=== PATIENT | female | born 1965 | race Caucasian/White ===

== ENCOUNTER 2024-09-30 09:26 | Outpatient (OUT) | payer MEDICARE, SELFPAY | END 2024-09-30 09:27 | disposition home or self-care (01) | LOC: WC 09:28 | PROVIDERS: Visit Provider Podiatrist Foot & Ankle Surgery | DX: I70.235 Atherosclerosis of native arteries of right leg with ulceration of other part of foot (principal); L97.513 Non-pressure chronic ulcer of other part of right foot with necrosis of muscle; I70.245 Atherosclerosis of native arteries of left leg with ulceration of other part of foot; L97.523 Non-pressure chronic ulcer of other part of left foot with necrosis of muscle | CPT/HCPCS: G0463 ==

== ENCOUNTER 2024-10-26 16:49 | Emergency (ER) | payer MEDICARE, SELFPAY ==
[2024-10-26] VITALS (14 sets, daily range): BP systolic 147–179; BP diastolic 81–114; PULSE 55–135; TEMP 36.8; O2SAT 95–97; BMI 25.8
--- OUTSIDE RECORDS SUMMARY | 2024-10-26 16:58 | XMS_ITS | Clinical Summary ---
Author Organization [facility] Address [address] [place] [address] Care Team Providers Care Chopper Gun Operator Name Role Phone Marianna Amado ROGE Primary Care Provider [phone] Allergies Active Allergy Reactions Criticality Noted Date Comments Gabapentin Flushing High 05/09/2019 Medications SUBOXONE 8-2 MG SL film 1 strip 2 times daily. 05/25/19 18 Active fluoxetine 20 MG Cap capsule TAKE 3 CAPSULES EVERY DAY 3 03/18/20 17 Active pantoprazole [address] tablet TAKE 1 TABLET EVERY DAY 3 03/18/20 17 Active atorvastatin 10 MG Tab tablet Take 1 tablet by mouth daily. 30 tablet 11 11/18/19 19 Active Additional Information Patient not taking.Reported on 01/07/2021 aspirin 81 MG Chew Tab chewable tablet Chew 81 mg daily. Active acetaminophen 500 MG Tab tablet Take 500 mg by mouth every 6 hours as needed for Pain. Active Cholecalciferol (Maximum D3) 250 MCG (44748 UT) capsule capsuleIndications :Vitamin D deficiency,Hypocal cemia,Limited scleroderma,Factor VIII deficiency,Factor deficiency, coagulation,Coagul ation defect, unspecified,Xerost omia,SS-A antibody positive,Rheumatoi d factor positive,Positive PREETHI (antinuclear antibody),Personal history of other venous thrombosis and embolism,Patient non adherence,Noncompl iance,Long-term use of high-risk medication,History of osteomyelitis,H/O blood clots,Dry mouth,Dry eyes,Centromere antibody positive,Anticardi olipin antibody positive,PREETHI positive,Raynaud's disease with gangrene,Chronic pulmonary hypertension 2 po one day a week. 10 capsule 12/29/19 20 Active pilocarpine 5 MG tabletIndications: Vitamin D deficiency,Hypocal cemia,Limited scleroderma,Factor VIII deficiency,Factor deficiency, coagulation,Coagul ation defect, unspecified,Xerost omia,SS-A antibody positive,Rheumatoi d factor positive,Positive PREETHI (antinuclear antibody),Personal history of other venous thrombosis and embolism,Patient non adherence,Noncompl iance,Long-term use of high-risk medication,History of osteomyelitis,H/O blood clots,Dry mouth,Dry eyes,Centromere antibody positive,Anticardi olipin antibody positive,PREETHI positive,Raynaud's disease with gangrene,Chronic pulmonary hypertension 1 po qid 30 minutes prior to meals and bed time 120 tablet 12/29/19 20 Active Additional Information Patient not taking.Reported on 01/07/2021 NIFEdipine (Procardia XL) 60 MG (OSM) tablet XLIndications:Hype rtension, unspecified type Take 1 tablet by mouth 2 times daily. 60 tablet 01/08/20 21 Active NIFEdipine (Procardia XL) 60 MG (OSM) tablet XLIndications:Ordonez tolic dysfunction Take 1 tablet by mouth 2 times daily. 60 tablet 01/08/20 21 Active ALBUTEROL IN Inhale. As needed Active NIFEdipine (Procardia XL) 30 MG (OSM) tablet XL Take 1 tablet by mouth daily as needed. 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 9 Cellulitis of left little finger 03/28/2019 Patient non adherence 11/18/2018 Noncompliance 11/18/2018 Xerostomia 11/18/2018 Dry mouth 11/18/2018 Dry eyes 11/18/2018 Keratoconjunctivitis sicca 11/18/2018 SS-A antibody positive 11/18/2018 Sjogren's syndrome 11/18/2018 Long-term use of high-risk medication 11/18/2018 Inflammatory arthritis 11/18/2018 Smoker 11/17/2018 Encounter for medical examination to establish c are 12/11/2017 Abnormal echocardiogram 12/11/2017 Lower extremity edema 12/11/2017 Hypervolemia 12/11/2017 Parathyroid hormone excess 11/24/2017 Secondary hyperparathyroidism, non-renal 018 Renal cyst, right 11/24/2017 Coronary artery calcification 11/24/2017 Bochdalek hernia 11/24/2017 Dilatation of esophagus 11/24/2017 Obesity: body mass index of 35.0-39.9 11/23/2017 Overview (08/11/2022): 08/09/22 IMO Update Factor VIII deficiency 08/18/2017 Idiopathic hypersomnia with long sleep time 07/09 Vitamin D deficiency 07/07/2017 Hypocalcemia 07/07/2017 Factor deficiency, coagulation 07/07/2017 Rheumatoid factor positive 07/07/2017 Positive PREETHI (antinuclear antibody) 07/07/2017 Limited scleroderma 07/07/2017 Centromere antibody positive 07/07/2017 Anticardiolipin antibody positive 07/07/2017 COPD, mild 07/07/2017 Decreased diffusion capacity of lung 07/07/2017 Diastolic dysfunction 07/07/2017 Left atrial enlargement 07/07/2017 Right atrial enlargement 07/07/2017 Mild tricuspid regurgitation 07/07/2017 Mild pulmonary hypertension 07/07/2017 Abnormal results of pulmonary function studies 0 07/07/2017 Cardiomegaly 07/07/2017 Chronic obstructive pulmonary disease, unspecifi ed 07/07/2017 Coagulation defect, unspecified 07/07/2017 Gastro-esophageal reflux disease without esophag itis 07/07/2017 Heart disease, unspecified 07/07/2017 Interstitial pulmonary disease, unspecified 06/12 Polyosteoarthritis, unspecified 07/07/2017 Chronic pulmonary hypertension 07/07/2017 Rheumatic tricuspid insufficiency 07/07/2017 Chronic venous hypertension (idiopathic) with ulcer of right lower extremity 06/16/2017 Diaphragmatic hernia without obstruction or gang cuca 06/04/2017 Essential hypertension 06/04/2017 Personal history of other venous thrombosis and embolism 06/04/2017 Fatigue 05/26/2017 Disorder of bone and cartilage 05/26/2017 Raynaud's disease 05/26/2017 GERD (gastroesophageal reflux disease) 8 SOB (shortness of breath) 05/26/2017 SARKAR (dyspnea on exertion) 05/26/2017 Dorsalgia 05/26/2017 Herniated intervertebral disc of lumbar spine Disorder of bone, unspecified 05/26/2017 Disorder of cartilage, unspecified 05/26/2017 Dorsalgia, unspecified 05/26/2017 Other fatigue 05/26/2017 Other forms of dyspnea 05/26/2017 Other intervertebral disc displacement, lumbar r egion 05/26/2017 Shortness of breath 05/26/2017 Bilateral hand pain 01/22/2015 Chronic fatigue 01/22/2015 Dysphagia 01/22/2015 Hypotension 01/02/2015 Overview (11/24/2017): Overview: Assessment: Patient had low blood pressures and bradycardia overnight. However she remains asymptomatic from this aside from being thirsty. Perhaps we could decrease sildenafil to twice a day. Plan: Decrease sildenafil to b.id. From t.i.d. Fever in adult 12/28/2014 Overview (11/24/2017): Overview: Assessment: Patient had malaise and fever overnight on 12/27/2014. The fever was not present in the morning. Look at vitals this occurred following an increase in titration from 5 to 6ng. This is likely 2/2 alprostadil vasodilation or a side effect to alprostadil. Possible that immune system is seeing infection at ulcered portions of fingers. Abnormal finding on imaging 03/29/2014 PREETHI positive 03/29/2014 Finger infection 03/29/2014 Overview (11/24/2017): Overview: Assessment: Patient currently on highest dose of alprostadil (6ng/kg/ml). She appears to be nauseated from this and may have a fever as a side effect. Differential includes sequalae to inflammatory response to finger ulcers 2/2 vasodilation or occult bacteremia. We have started decreasing the dose 1ng per two hours. Unless cultures come back positive or fever comes back the patient will be discharged once we have reached baseline level. We have discontinued the vancomycin and zosyn but we will continue the dicloxacillin that the patient has been on. She will be discharged with a prescription to take outpatient. Plan: Wean off alprostadil 1ng ever two hours for possible discharge Follow up on blood and urine cultures D/C Vancomycin and Zosyn. Continue dicloxacillin. Consultation with ID- No abx for now. Orthopedic consult scheduled February [address] Montano Consult wound care team: signed off Consult vascular medicine: signed off yesterday Height loss 03/29/2014 Leg swelling 03/29/2014 Overview (11/24/2017): Overview: Leg swelling an issue in her previous admission, very tight today on exam (although likely baseline). Multiple negative DVT scan in chart. Quite possibly d/t alprostidil infusion during last admission. Better today per patient. Plan: --> Continue to monitor off alprost, should continue to improve. Osteopenia 03/29/2014 Lumbosacral spondylosis without myelopathy 12/23 Multiple joint pain 12/19/2010 Osteoarthritis Anxiety Depression Chemical dependency Overview (06/04/2017): history suboxone also using for chronic pain. Hypertension Hemorrhoids Thyroid condition H/O blood clots Circulation problem Hiatal hernia Resolved Problems Problem Noted Date Diagnosed Date Resolved Date Ischemic finger ulcer 03/28/20192019 Long-term use of Plaquenil 11/18/2018 1 05/28/2018 Other microscopic hematuria 09/17/2017 11/18/2018 Hematuria 07/07/2017 11/18/2018 Hematuria, unspecified 07/07/201711/18 Non-pressure chronic ulcer o f other part of right lower leg with unspecified severity 07/07/2017 11/18/2018 Other specified abnormal imm unological findings in serum 07/07/2017 11/18/2018 Raynaud's syndrome without gangrene 07/07/2017 12/29/2019 Systemic sclerosis, unspecified 07/07/2017 03/28/2019 Vitamin D deficiency, unspecified 07/07/2017 11/18/2018 Unspecified open wound of le ft thumb without damage to nail, subsequent encounter 06/16/2017 Scleroderma 05/26/2017 07/07/2017 Ulcer of right bains 05/26/2017 11/19/19 19 Skin ulcer of hand 05/26/2017 8 Non-pressure chronic ulcer o f skin of other sites with unspecified severity 05/26/2017 11/19/19 19 Bacteremia due to Gram-positive bacteria 12/30/2014 12/29/2019 Overview (11/24/2017): Overview: Noted after discharge. Blood from cultures 12/28 grew MRSE, sensitivities pending. No systemic symptoms at home. ID has been consulted they do not feel that antibiotics are necessary as micrococcus was actually mislabeled in second container. Will stop Vanco. Plan for discharge 01/02/2015 if echocardiogram is normal. Plan: Stop Vancomycin F/U most recent blood cultures F/Up on echocardiogram Ulcer of finger 03/30/2014 11/24/2017 Overview (11/24/2017): Overview: Known ulcers of right finger as well as left thumb. She was evaluated fully during her last admission. Hand surgery has recommended outpatient follow up to evaluate. This has been scheduled to occur on Feb 05 [address] [place] [address]. Montano. Plan: --> Vanco for now, will transition to orals once sensitivities are back. Abnormal laboratory test result 12/19/2010 11/18/2018 CRP elevated 12/19/2010 03/28/2019 Scleroderma 12/19/2010 03/28/2019 Overview (11/24/2017): Overview: Long-time history of scleroderma, being treated here at [facility]. Recently (12/28) got sildenafil approved by her insurance, now on 20 mg TID. Plan: --> Continue sildenafil, nifedipine --> Pain managed with suboxone, pregabalin Sclerodermia generalized Raynaud disease 11/18/2018 Family History Medical History Relation Name Comments Heart Failure Father Relation Name Status Comments Father Mother Social History Tobacco Use Types Packs/Day Years Used Date Smoking Tobacco: Former Cigarettes Smokeless Tobacco: Never Tobacco Cessation:Ready to Q uit: No; Counseling Given: Yes Alcohol Use Standard Drinks/Week Comments Not Currently 0 (1 standard drink = 0.6 oz pur e alcohol) Comments No Sex and Gender Information Value Date Recorded Sex Assigned at Not on file Legal Sex Female 6:42 AM EST Gender Identity Female 03/04/2017 1:05 PM EDT Sexual Orientation Not on file Last Filed Vital Signs Vital Sign Reading Time Taken Comments Blood Pressure 120/72 01/07/2021 11:27 AM EDT Pulse 64 01/07/2021 11:27 AM EDT Temperature 36.8 C (98.3 F) 12/29/2019 12:31 PM EDT Respiratory Rate 16 01/07/2021 11:27 AM EDT Oxygen Saturation 96% 01/07/2021 11:27 AM EDT Inhaled Oxygen Concentration - - Weight 96.3 kg (212 lb 6.4 oz) 01/07/2021 11:27 AM EDT Height 175.3 cm (5' 9 ) 01/07/2021 11:27 AM EDT Body Mass Index 31.37 01/07/2021 11:27 AM EDT Plan of Treatment Health Maintenance Due Date Last Done Comments TETANUS 1964 HIV SCREENING DISCUSSION 01/23/1979 TDAP (ADULT) 01/23/1983 CERVICAL CANCER SCREENING DISCUSSION 01/23/1985 LIPID SCREENING 2004 MAMMOGRAM SCREENING DISCUSSION 2004 COLORECTAL CANCER SCREENING DISCUSSION 01/23/2009 PNEUMOCOCCAL VACCINE SERIES (1 of 1 - PCV) 01/23/2014 ZOSTER (SHINGLES) VACCINE (1 of 2) 01/23/2014 COVID-19 VACCINE (2023-2 5 season) 2024 INFLUENZA VACCINE (Season Ended) 2025 RSV VACCINE (1 - 1-dose 75+ series) 01/23/2039 HEPATITIS C VIRUS SCREENING Completed 05/26/2017 HEP B VACCINE Aged Out No longer elig ible based on patient's age to complete this topic Procedures Procedure Name Priority Date/Time Associated Diagnosis Comments HEPATITIS A, B, C Routine 05/26/2017 10: 17 AM EST Scleroderma Fatigue, unspecified type Disorder of bone and cartilage Gastroesophageal reflux disease, esophagitis presence not specified Raynaud's disease without gangrene SARKAR (dyspnea on exertion) SOB (shortness of breath) Skin ulcer of right pretibial region, unspecified ulcer stage Skin ulcer of hand, unspecified ulcer stage Herniated intervertebral disc of lumbar spine Dorsalgia from Last 3 Months or Most Recently Relevant to Health Maintenance Results * HEPATITIS A, B, C (05/26/2017 10:17 AM EST) Hep A AB (IGG + IGM) Negative Negative [facility] Hep B Surf AG Negative Negative [facility] HEP B CORE AB,TOTAL(IGG+IGM) Negative Negative [facility] Hep B Surf AB Non Reactive [facility] Comment: (NOTE) Non Reactive: Inconsistent with immunity, less than 10 mIU/mL Reactive: Consistent with immunity, greater than 9.9 mIU/mL Verified by repeat analysis HEP C AB 0.7 0.0 - 0.9 s/co ratio [facility] Comment: (NOTE) Negative: < 0.8 Indeterminate: 0.8 - 0.9 Positive: > 0.9 The CDC recommends that a positive HCV antibody result be followed up with a HCV Nucleic Acid Amplification test (854409). PERFORMED AT [facility] 05/26/2017 10:1 7 AM EST 05/26/2017 10:18 AM EST us Km Simeon Jr., DO IMMUNOLOGY ORDERABLES Final Result [facility] from Last 3 Months or Most Recently Relevant to Health Maintenance Insurance MEDICARE A AND B Care Teams Chopper Gun Operator Relationship Specialty Start Date End Date Marianna Amado CNP [address] [place] [id number] PCP - General Certified Nurse Practitioner 03/04/17
--- OUTSIDE RECORDS SUMMARY | 2024-10-26 16:58 | XMS_ITS | Clinical Summary ---
Author Organization [facility] Address [address] [place] [address] Care Team Providers Care Oil Heaterman Name Role Phone Ingris Marianna Nayan CHURCH - WIRE STRIPPER Primary Care Provider [phone] Allergies No known active allergies Medications atorvastatin (LIPITOR) 10 MG tablet Take 10 mg by mouth daily 11/17/2018 Active buprenorphine-n aloxone (SUBOXONE) 8-[address] film [address] 8 mg under the tongue every morning. 10/18/2014 Active vitamin D (CHOLECALCIFERO L) 250 MCG (63795 UT) CAPS capsule Take 1,000 Units by mouth once a week 07/02/2017 Active FLUoxetine (PROZAC) 20 MG capsule Take 60 mg by mouth every morning 10/24/2010 Active ibuprofen (ADVIL;MOTRIN) 600 MG tablet Take 800 mg by mouth every 6 hours as needed Active NIFEdipine (PROCARDIA XL) 60 MG extended release tablet Take 60 mg by mouth nightly 03/28/2019 Active pantoprazole (PROTONIX) 40 MG tablet Take 40 mg by mouth every morning 02/12/2015 Active aspirin 81 MG tablet Take 81 mg by mouth daily Active sildenafil (REVATIO) 20 MG tablet Take 20 mg by mouth 3 times daily Active Social History Tobacco Use Types Packs/Day Years Used Date Smoking Tobacco: Every Day Cigarettes Smokeless Tobacco: Never Tobacco Cessation:Ready to Q uit: No; Counseling Given: No Alcohol Use Standard Drinks/Week Comments Not Currently 0 (1 standard drink = 0.6 oz pur e alcohol) Comments No Sex and Gender Information Value Date Recorded Sex Assigned at Not on file Legal Sex Female 4:23 PM EST Gender Identity Not on file Sexual Orientation Not on file Last Filed Vital Signs Vital Sign Reading Time Taken Comments Blood Pressure 134/76 03/30/2019 5:06 PM EST Pulse 78 03/30/2019 5:06 PM EST Temperature 37.1 C (98.8 F) 03/30/2019 5:06 PM EST Respiratory Rate 16 03/30/2019 5:06 PM EST Oxygen Saturation 98% 03/30/2019 5:06 PM EST Inhaled Oxygen Concentration - - Weight 101.6 kg (224 lb) 03/30/2019 5:06 PM EST Height 172.7 cm (5' 8 ) 03/30/2019 5:06 PM EST Body Mass Index 34.06 03/30/2019 5:06 PM EST Plan of Treatment Not on file Care Teams Oil Heaterman Relationship Specialty Start Date End Date Marianna Amado APRN - WIRE STRIPPER [facility] [place] [address] PCP - General Nurse Practitioner 03/30/19
--- OUTSIDE RECORDS SUMMARY | 2024-10-26 16:58 | XMS_ITS | Encounter Summary ---
Author Organization [facility] Address [address] [place] [address] Care Team Providers Care Extension Service Supervisor Name Role Phone Marianna Amado ROGE Primary Care Provider [phone] Encounter Details Date Type Department Care Team (Late st Contact Info) Description 07/21/2019 Telephone [facility] [address] [id number] Treasure Velez RN Social History Tobacco Use Types Packs/Day Years Used Date Smoking Tobacco: Every Day Cigarettes Smokeless Tobacco: Never Alcohol Use Standard Drinks/Week Comments Not Currently 0 (1 standard drink = 0.6 oz pur e alcohol) Comments No Sex and Gender Information Value Date Recorded Sex Assigned at Not on file Legal Sex Female 6:42 AM EST Gender Identity Female 03/04/2017 1:05 PM EDT Sexual Orientation Not on file COVID-19 Exposure Response Date Recorded In the last month, have you been in contact with someone who was confirmed or suspected to have Coronavirus / COVID-19? No / Unsure 07/22/2019 7:37 AM EDT documented as of this encounter Functional Status * Are you deaf or do you have serious difficulty hearing? Answer Date of Assessment Author No 11/24/2017 9:49 AM SEBLET Gurdeep Marti LPN * Are you blind or do you have serious difficulty seeing, even when wearing glasses? Answer Date of Assessment Author No 11/24/2017 9:49 AM Gurdeep Madison LPN * Do you have serious difficulty walking or climbing stairs (5 years or older)? Answer Date of Assessment Author No 11/24/2017 9:49 AM Gurdeep Madison LPN * Do you have difficulty dressing or bathing (5 yrs or older)? Answer Date of Assessment Author No 11/24/2017 9:49 AM Gurdeep Madison LPN * Because of a physical, mental, or emotional condition, do you have difficulty doing errands alone such as visiting a doctor's office or shopping (5 yrs or older)? Answer Date of Assessment Author No 11/24/2017 9:49 AM Gurdeep Madison LPN documented as of this encounter Mental Status * Because of a physical, mental, or emotional condition, do you have serious difficulty concentrating, remembering, or making decisions (5 yrs or older)? Answer Entry Date Author No 11/24/2017 9:49 AM Gurdeep Madison LPN documented in this encounter Plan of Treatment Not on file documented as of this encounter Visit Diagnoses Not on filedocumented in this encounter Additional Health Concerns Infection Onset Date Last Indicated Resolved Time COVID-19 Suspected 02/24/2020 02/24/2020 0 2:33 AM EDT Assessment Noted Time PHQ-9 Depression Total Score: 3 11/24/19 18 8:58 AM EDT documented as of this encounter Care Teams Extension Service Supervisor Relationship Specialty Start Date End Date Marianna Amado CNP [address] [place] [address] PCP - General Certified Nurse Practitioner 03/04/17 documented as of this encounter
--- OUTSIDE RECORDS SUMMARY | 2024-10-26 16:58 | XMS_ITS | Patient Health Record ---
Author Organization [email or web address] [facility] Address [address] [place] [address] Care Team Providers Care Bank Note Designer Name Role Phone Gail Schaefer Primary Care Provider Leobardo Rucker Unavailable [phone] Reason For Referral No Information Medications Medication SIG (Take, Route, Frequency, Duration) Notes Start Date End Date Status PROzac 20 MG 3 cap(s) Orally 3 ta bs po daily for 30 days Active Pantoprazole Sodium 40 MG 1 tablet Orall y Once a day for 30 days Active Suboxone 16 mg 1 TAB Sublingual Onc e a day Active PROzac 20 MG 1 capsule in the mor inocente Orally Once a day x 1 week, then 2 tabs po daily x 1 week, then 3 tabs po daily for 30 day(s) 06/09/2013 Active Pantoprazole Sodium 40 MG 1 tablet Orall y Once a day for 30 days Active Procardia XL 90 mg daily Orally Once a day for 90 day(s) Active Tylenol Extra Strength 500 MG 2 TABS Orally Active Problems Problem Type SNOMED Code ICD Code Onset Dates Problem Status W/U Status Risk Notes Problem Generalized anxiety disorder (07386380) Generalized anxiety disorder (300.02) Active confirmed Problem Benign essential hypertension (9286727) Essential hypertension, benign (401.1) Active confirmed Problem Essential hypertension (89495208) Essential hypertension (401.9) Active confirmed Low Problem Systemic sclerosis (86169697) Systemic sclerosis (710.1) Active confirmed Problem Pain,Back-Muscos keletal (781.99) Active confirmed Plan Of Treatment No Information Insurance Providers Payer Name Payer Address Payer Phone Subscriber Number Group Number Insured Name Patient Relationship to Insured Coverage Start Date Coverage End Date MEDICARE CGS 1 AMANDA DOVER [facility] [place] [phone] [id number] VIK ABEL Self - patient is the insured Medical (General) History Medical History History ICD Code scleroderma raynauds syndrome w/ chronic ulcers depression Esophageal reflux ulcers-leg anemia amenorrhea x1yr MRSA vein thrombosis-right upper ext. chronic wounds DVT tubal pregnanacy- 1986 Surgical History Surgery Date(Month/Year) finger amputation 2002 finger amputation 2004 finger amputation 2005 tubal ligation 1983 cholecystectomy 1991 right ovary & right tube removed PINKY FINGER ON HER RIGHT HAND AMPUTATIO N SEP, 2012 PARTIAL AMPUTATION BILAT RING FINGERS AN D REVISION 02/21 12/26- Hospitalization History Reason Date(Month/Year) SURGERIES
--- OUTSIDE RECORDS SUMMARY | 2024-10-26 16:58 | XMS_ITS | Encounter Summary ---
Author Organization [facility] Address [address] [place] [address] Care Team Providers Care Wood Model Maker Name Role Phone Cecelia Franks MD Primary Care Provider [phone] Encounter Details Date Type Department Care Team (Late st Contact Info) Description 09/06/2024 Abstract [facility] [address] [place] [id number] Ozzy Rangel, DPM FACFAS [address] [place] [address] Social History Tobacco Use Types Packs/Day Years Used Date Smoking Tobacco: Never Assessed Comments Unknown Sex and Gender Information Value Date Recorded Sex Assigned at Not on file Legal Sex Female 7:17 PM EDT Gender Identity Not on file Sexual Orientation Not on file documented as of this encounter Plan of Treatment Not on file documented as of this encounter Visit Diagnoses Not on filedocumented in this encounter Care Teams Wood Model Maker Relationship Specialty Start Date End Date Cecelia Franks MD [address] [place] [address] [place] [address] PCP - General Family Medicine 09/05/24 documented as of this encounter
--- OUTSIDE RECORDS SUMMARY | 2024-10-26 16:58 | XMS_ITS | Clinical Summary ---
Author Organization [facility] Address [address] [place] [address] Care Team Providers Care Home Security Alarm Installer Name Role Phone Cecelia Franks MD Primary Care Provider [phone] Encounters Date Type Department Care Team Description 09/06/2024 Abstract [facility] [address] [place] [id number] Ozzy Rangel, DPM FACFAS from Last 3 Months Social History Tobacco Use Types Packs/Day Years Used Date Smoking Tobacco: Never Assessed Comments Unknown Sex and Gender Information Value Date Recorded Sex Assigned at Not on file Legal Sex Female 7:17 PM EDT Gender Identity Not on file Sexual Orientation Not on file Plan of Treatment Not on file Insurance MEDICARE Care Teams Home Security Alarm Installer Relationship Specialty Start Date End Date Cecelia Franks MD [address] [place] [address] Dr Silveira, [facility] PCP - General Family Medicine 09/05/24
--- NOTE | 2024-10-26 18:08 | ECG_ITS ---
The [facility] Test Date: 2024-10-26 Pat Name: VIK ABEL Department: Room: - Gender: Female Transit Operator: : 1965 Requested By: 0919 Order Number: [id number] Reading MD: MOSES CRAWFORD M.D. Measurements Intervals [place] Rate: 112 P: 53 CO: 156 QRS: -56 QRSD: 130 T: 252 QT: 408 QTc: 474 Interpretive Statements 1120 Sinus tachycardia 1470 with occasional supraventricular premature complexes 1574 with frequent ventricular premature complexes 2450 Right bundle branch block [address] depression, possible subendocardial injury 4164 Twave abnormality, possible anterior ischemia 4664 Twave abnormality, possible inferior ischemia 7200 Abnormal left axis deviation 9150 abnormal ECG No previous ECG available for comparison Electronically Signed On 10-26-2024 21:07:53 EDT by MOSES CRAWFORD M.D.
--- NOTE | 2024-10-26 18:08 | ED.GENADUL1 ---
HPI HPI - General Adult General Chief complaint: Wound/Laceration Stated complaint: not eating not drinking, soiling self Time Seen by Provider: 10/26/24 17:05 Source: patient Mode of arrival: Wheelchair Limitations: no limitations History of Present Illness HPI narrative: Patient is a 59-year-old female who is presenting to the ER today with multiple complaints. Patient is having generalized weakness, last patient was having a lot of diarrhea. Patient has a necrotic right third toe this been going on for over a month. Patient has open sores to her lower extremities. Patient has a history of scleroderma. Patient has lost all of her nails in the distal aspects of all of her fingers in the left hand. Patient has lost her nails to all of her fingers on the right hand except the right thumb. Patient has chronic malformation to all of her fingers to both hands secondary to scleroderma. Patient has been fighting scleroderma symptoms and complications for over 30 years. Patient is a smoker. Patient started smoking at the age of 29. Patient has smoked cigarettes for 25 years, a pack a day. Patient is not diabetic. Patient has open ulcerations and sores to her bilateral anterior legs with no secondary obvious signs of infection. Patient has had a black right third toe for over a month. Patient saw Dr. Wyatt approximately 1 month ago. Patient was supposed to be in hyperbaric chamber treatment for the last 3 weeks which she has not done. Patient says that she has a sick at home that has cancer. She says that her cannot help take care of her at home. Patient is having pain to both of her feet. She has swelling to both feet. Patient states 3 weeks ago she cannot make the hyperbaric chamber secondary to weakness. Last week patient was feeling sick and diarrhea where she could not make the hyperbaric chamber. Patient could not go this week either. Patient was finally brought to the ER All systems are negative except as noted/marked. All systems reviewed and otherwise negative. Nurses note and vital signs reviewed and patient is not hypoxic. Patient smells of tobacco products. General: The patient appears mild distress secondary to multiple symptoms and complaints and pain. Patient is resting uncomfortably on cart, she is sitting with her legs over the cart, sitting in a seated position because it helps the pain of her right foot.. Patient is possibly toxic, lethargic, or listless Skin: Warm, dry, no pallor noted. There is multiple open sores/ulcerations to bilateral anterior legs, clear/dry drainage, no secondary signs of cellulitis or abscess or obvious infections. Patient has mild redness to the dorsal aspect of both feet, with mild edema/inflammation. Patient's. No petechiae, purpura. Head: Normocephalic, atraumatic Eye: Normal conjunctiva, no drainage, EOMI. PERRL Ears, Nose, Mouth, and Throat: oral mucosa is dry. Nares patent. Mouth without vesicles. Cardiovascular: Regular Rate and Rhythm, no murmur, gallop, rub Respiratory: Patient is in no distress, no accessory muscle use, lungs are clear to auscultation, decreased breath sounds bilateral, wheezing noted diffusely bilateral. Back: non-tender, no CVA tenderness bilaterally to percussion. No CT LS midline pain GI: no tenderness to palpation, no masses appreciated. No rebound, guarding, or rigidity noted. No distention Musculoskeletal: Patient has full range of motion of all of the extremities at her baseline besides right foot. Patient has multiple chronic changes to bilateral hands secondary to scleroderma. Patient has no fingernails and has nubs to all 5 fingers of the left hand. Patient has similar nubs and no fingernails to right second, third, fourth, fifth fingers, she does have a fingernail to the right thumb, chronic changes secondary to scleroderma. Patient has a necrotic right third toe. Severe tenderness to palpation to the right third toe. Patient has diffuse mild redness/erythema to the dorsal aspect of bilateral feet. No ulcers to the plantar aspect of bilateral feet. No motor, sensory, or focal neurological deficits that are new besides her baseline secondary to scleroderma. Neurological: A&O x4, normal speech Psychiatric: Cooperative Related Data Home Medications ?Medication ?Instructions ?Recorded ?Confirmed ascorbic acid (vitamin C) 500 mg 500 mg PO .QOD 10/26/24 10/26/24 tablet cholecalciferol (vitamin D3) 250 500 mcg PO QWEEK 10/26/24 10/26/24 mcg (10,000 unit) capsule ferrous sulfate 325 mg (65 mg 325 mg PO .QOD 10/26/24 10/26/24 iron) tablet (FeroSul) fluoxetine 20 mg capsule 60 mg PO DAILY 10/26/24 10/26/24 metoprolol succinate 25 mg 25 mg PO BID 10/26/24 10/26/24 tablet,extended release 24 hr pantoprazole 40 mg tablet,delayed 40 mg PO BID 10/26/24 10/26/24 release sildenafil (pulm.hypertension) 20 20 mg PO TID 10/26/24 10/26/24 mg tablet trazodone 50 mg tablet 50 mg PO .QHS 10/26/24 10/26/24 Allergies Allergy/AdvReac Type Severity Reaction Status Date / Time cephalexin (From Keflex) AdvReac Severe yeast Verified 10/26/24 17:09 infection gabapentin AdvReac Severe burning Verified 10/26/24 17:09 pain to skin Opioid HPI Opioid Management Most Recent Opioid Data: Last Pain Scale 7 Today, 17:09 PFSH PFSH Social History Little interest or pleasure in doing things: nearly every day Feeling down, depressed, or hopeless: nearly every day Exam Constitutional Vital Signs, click to edit/add: Last Vital Signs Temp 98.3 F 10/26/24 17:09 Pulse 97 H 10/26/24 17:09 Resp 16 10/26/24 17:09 BP 179/93 H 10/26/24 17:09 Pulse Ox 97 10/26/24 17:09 O2 Del Method Room Air 10/26/24 17:09 Course Vital Signs Vital signs: Vital Signs Temperature 98.3 F 10/26/24 17:09 Pulse Rate 97 H 10/26/24 17:09 Respiratory Rate 16 10/26/24 17:09 Blood Pressure 179/93 H 10/26/24 17:09 Pulse Oximetry 97 10/26/24 17:09 Oxygen Delivery Method Room Air 10/26/24 17:09 Temperature 98.3 F 10/26/24 17:09 Pulse Rate 97 H 10/26/24 17:09 Respiratory Rate 16 10/26/24 17:09 Blood Pressure 179/93 H 10/26/24 17:09 Pulse Oximetry 97 10/26/24 17:09 Oxygen Delivery Method Room Air 10/26/24 17:09 Medical Decision Making [facility] Narrative Medical decision making narrative: Patient seen and examined: Patient will have a septic workup along with x-ray of her chest and her foot. Patient will have IV fluids initiated. Differential diagnosis includes but is not limited to: Necrotic toe, osteomyelitis, cellulitis, electrolyte abnormality, dehydration, kidney failure, AMI, ACS, pneumonia, UTI Diagnostics and management: Patient will have laboratory studies Relevant laboratory interpretation: White blood cell count 14, venous blood gas 7.38, CO2 50, sodium 144, potassium 2.9, BUN/creatinine 18/1.0; glucose 131, calcium 6, magnesium 0.4. Troponin was 426, second troponin was 303. 32,528; albumin 2.7 Radiological studies: Please see the formal radiological report. IMPRESSION: CHEST XRAY There is cardiomegaly with perihilar vascular prominence suspicious for volume overload/congestive heart failure. Procedure: XR foot RT min 3V XR foot RT min 3V 10/26/2024 6:30 PM SIGNS AND SYMPTOMS: Right foot pain and swelling with redness, chronic wound third digit PROTOCOL: Frontal, lateral, and oblique radiographs of the right foot COMPARISON: None FINDINGS: There is osteopenia. There is ostial lysis of the middle and distal phalanx of the third digit with accompanying soft tissue swelling suggesting cellulitis and underlying osteomyelitis. There is plantar and Achilles surface calcaneal spurring. There is soft tissue swelling throughout the right foot. XR/XR foot RT min 3V IMPRESSION: Findings suggest osteomyelitis of the third middle and distal phalanx. There is diffuse soft tissue swelling suggesting cellulitis. Reevaluation: Patient is very tearful when were discussing x-ray findings of her chest, foot, and all of her electrolyte abnormalities. Shared decision making: I discussed with the patient the necessary laboratory findings and radiological findings. Social barriers to healthcare: There are no food insecurities, there is no issue with transportation, there are no insurance barriers. Disposition: I discussed with the patient , son, daughter all of the findings on patient's testing. Concern for pulmonary edema, but also concerns for sepsis/infection, dehydration, and electrolyte abnormalities. Patient's potassium is 2.9, magnesium 0.4, calcium 6.0. Patient was initially given 1 L of IV fluids secondary concerns for dehydration and infection. Patient is given oral and IV potassium, oral and IV magnesium, IV calcium. 1830 I spoke to Renetta GUAN and gave her heads up on admission of this patient to the floor, lab work still pending. We discussed patient's case, necrotic and signs of osteomyelitis to the right third toe. I have also reached out and discussed the case with Dr. Wyatt. Dr. Wyatt is patient's backup operator, he is aware of the case as well. 190 patient's lab work started coming back with electrolyte abnormalities, elevated troponin, elevated BNP. Additional medications have been placed. 1914 I had a lengthy conversation with family at bedside including patient, , daughter and son. Patient had a stent placed at [facility] last year, she has 1 stent. Patient is on Eliquis. Most of patient's physicians are at [facility]. With patient's troponin being elevated, patient geographic information system surveyor being at [facility], patient and family are requesting transfer to [facility] where her heart doctors are. 1929 patient's case is transitioned to Dr. Boyd to help call [facility] and initiate transfer for patient's multiple electrolyte abnormalities, and necrotic right third toe with osteomyelitis. Patient has a history of scleroderma, she has had multiple complications over the years secondary to scleroderma. Patient has multiple venous ulcerations to her anterior legs, no secondary signs of infection. Patient will be on continuous cardiac monitoring. Second troponin will be ordered to trend troponins, most likely troponin could be elevated secondary to demand ischemia. 1929 transition of care to Dr. Boyd for final disposition and transfer. Critical care time 45 minutes exclusive from separate billable procedures that were performed. The following was considered in the determination of critical care but not limited to the level of medical decision making, intensive cardiac and/or respiratory monitoring, frequent vital sign monitoring, evaluation of laboratory studies, evaluation of radiographic studies, oxygen monitoring, and constant monitoring and speaking to family at bedside Lab Data Lab results reviewed: Yes I reviewed the patient's lab results Labs: Lab Results 10/26/24 10/26/24 10/26/24 Range/Units 17:58 18:19 18:22 WBC 14.2 H (4.0-11.0) 10^3/uL RBC 4.35 (4.20-5.40) 10^6/uL Hgb 11.9 L (12.0-16.0) g/dL Hct 39.1 (36.0-48.0) % MCV 89.9 (81.0-99.0) fL MCH 27.4 (26.7-34.0) pg MCHC 30.4 (29.9-35.2) g/dL RDW 16.8 H (11.0-15.0) % Plt Count 297 (150-450) 10^3/uL MPV 11.5 (9.5-13.5) fL Neut % (Auto) 78.5 H (43.0-75.0) % Lymph % (Auto) 11.9 L (20.5-60.0) % [place] % (Auto) 6.4 (1.7-12.0) % Eos % (Auto) 2.1 (0.9-7.0) % Baso % (Auto) 0.7 (0.2-2.0) % Neut # (Auto) 11.2 H (1.4-6.5) 10^3/uL Lymph # (Auto) 1.7 (1.2-3.8) 10^3/uL [place] # (Auto) 0.9 H (0.3-0.8) 10^3/uL Eos # (Auto) 0.3 (0.0-0.7) 10^3/uL Baso # (Auto) 0.1 (0.0-0.1) 10^3/uL Abs Immat Gran (auto) 0.05 H (0.00-0.03) 10^3/uL Imm/Tot Granulo (auto) 0.4 (0.0-0.5) % PT 14.4 H (9.0-11.6) sec INR 1.41 VBG pH 7.387 (7.330-7.430) VBG pCO2 50.2 (40.0-52.0) mmHg Sodium 144 (136-145) mmol/L Potassium 2.9 L* (3.5-5.1) mmol/L Chloride 102 (98-107) mmol/L Carbon Dioxide 30.3 (21.0-32.0) mmol/L Anion Gap 14.6 BUN 18.0 (7.0-18.0) mg/dL Creatinine 1.04 H (0.55-1.02) mg/dL Est GFR ( Amer) >60 (>=60 mL/min/1.73m^2) Est GFR (Non-Af Amer) 54 L (>=60 mL/min/1.73m^2) BUN/Creatinine Ratio 17.3 Glucose 131 H (74-106) mg/dL Lactate 2.1 H* (0.4-2.0) mmol/L Calcium 6.0 L (8.5-10.1) mg/dL Magnesium 0.4 L* (1.8-2.4) mg/dL Total Bilirubin 0.7 (0.2-1.0) mg/dL AST 18 (15-37) U/L ALT 8 L (14-59) U/L Alkaline Phosphatase 82 (46-116) U/L Total Creatine Kinase 177 (26-192) U/L Troponin I High Sens 426.3 H* (4.0-51.3) pg/mL NT-Pro-B Natriuret Pep 94672.0 H* (<=900.0) pg/mL Total Protein 6.8 (6.4-8.2) g/dL Albumin 2.7 L (3.4-5.0) g/dL Globulin 4.1 g/dL Albumin/Globulin Ratio 0.7 POC Glucose 130 H (74-106) mg/dL 10/26/24 Range/Units 19:47 WBC (4.0-11.0) 10^3/uL RBC (4.20-5.40) 10^6/uL Hgb (12.0-16.0) g/dL Hct (36.0-48.0) % MCV (81.0-99.0) fL MCH (26.7-34.0) pg MCHC (29.9-35.2) g/dL RDW (11.0-15.0) % Plt Count (150-450) 10^3/uL MPV (9.5-13.5) fL Neut % (Auto) (43.0-75.0) % Lymph % (Auto) (20.5-60.0) % [place] % (Auto) (1.7-12.0) % Eos % (Auto) (0.9-7.0) % Baso % (Auto) (0.2-2.0) % Neut # (Auto) (1.4-6.5) 10^3/uL Lymph # (Auto) (1.2-3.8) 10^3/uL [place] # (Auto) (0.3-0.8) 10^3/uL Eos # (Auto) (0.0-0.7) 10^3/uL Baso # (Auto) (0.0-0.1) 10^3/uL Abs Immat Gran (auto) (0.00-0.03) 10^3/uL Imm/Tot Granulo (auto) (0.0-0.5) % PT (9.0-11.6) sec INR VBG pH (7.330-7.430) VBG pCO2 (40.0-52.0) mmHg Sodium (136-145) mmol/L Potassium (3.5-5.1) mmol/L Chloride (98-107) mmol/L Carbon Dioxide (21.0-32.0) mmol/L Anion Gap BUN (7.0-18.0) mg/dL Creatinine (0.55-1.02) mg/dL Est GFR ( Amer) (>=60 mL/min/1.73m^2) Est GFR (Non-Af Amer) (>=60 mL/min/1.73m^2) BUN/Creatinine Ratio Glucose (74-106) mg/dL Lactate 1.5 (0.4-2.0) mmol/L Calcium (8.5-10.1) mg/dL Magnesium (1.8-2.4) mg/dL Total Bilirubin (0.2-1.0) mg/dL AST (15-37) U/L ALT (14-59) U/L Alkaline Phosphatase (46-116) U/L Total Creatine Kinase (26-192) U/L Troponin I High Sens 303.7 H* (4.0-51.3) pg/mL NT-Pro-B Natriuret Pep (<=900.0) pg/mL Total Protein (6.4-8.2) g/dL Albumin (3.4-5.0) g/dL Globulin g/dL Albumin/Globulin Ratio POC Glucose (74-106) mg/dL Patient's lactic acid and troponins are trending and improving. ECG Data Attestation: I personally reviewed and interpreted this ECG as follows: (EKG interpretation. Sinus tachycardia at 112. Right bundle branch block noted. PVC noted. Artifact noted. Diffuse ST depression and nonspecific ST changes. QTc of 474.) Discharge Plan Discharge Chief Complaint: Wound/Laceration Clinical Impression: Osteomyelitis of third toe of right foot, Venous stasis ulcer, Hypokalemia, Hypomagnesemia, Acidosis, lactic, Dehydration, Venous stasis ulcers of both lower extremities, Non-ST elevation DC (NSTEMI), Chronic pain in right foot, Hypocalcemia, Scleroderma, diffuse Patient Disposition: [facility] Time of Disposition Decision: 18:52 Condition: Critical Mode of Transportation: EMS
[2024-10-26 18:19] LABS: Glucometer 130 mg/dL (74-106)
--- NOTE | 2024-10-26 18:29 | XR_ITS ---
The [address] [address] Patient Name: VIK ABEL MRN: [id number] date: 1965 Sex: F Assigned Patient Location: ER Current Patient Location: ER Accession/Order Number: [id number] Exam Date: 10/26/2024 18:34 Report Date: 10/26/2024 18:35 At the request of: VITA SHRESTHA MD Procedure: XR chest 1V XR chest 1V 10/26/2024 6:29 PM SIGNS AND SYMPTOMS: ^sob ^N PROTOCOL: Frontal radiograph of the chest COMPARISON: None FINDINGS: The trachea is midline. There is cardiomegaly. There is perihilar vascular prominence. The lung parenchyma is clear, otherwise. The bony thorax is intact. XR/XR chest 1V IMPRESSION: There is cardiomegaly with perihilar vascular prominence suspicious for volume overload/congestive heart failure. Impression dictated by: Roberto Diez M.D. 10/26/2024 6:35 PM Dictation Location: [place] [address] Electronically authenticated by: [id number] Y Date: 10/26/2024 18:35
--- NOTE | 2024-10-26 18:29 | XR_ITS ---
The [place] [id number] Patient Name: VIK ABEL MRN: [id number] date: 1965 Sex: F Assigned Patient Location: ER Current Patient Location: ER Accession/Order Number: [id number] Exam Date: 10/26/2024 18:35 Report Date: 10/26/2024 18:38 At the request of: VITA SHRESTHA MD Procedure: XR foot RT min 3V XR foot RT min 3V 10/26/2024 6:30 PM SIGNS AND SYMPTOMS: Right foot pain and swelling with redness, chronic wound third digit PROTOCOL: Frontal, lateral, and oblique radiographs of the right foot COMPARISON: None FINDINGS: There is osteopenia. There is ostial lysis of the middle and distal phalanx of the third digit with accompanying soft tissue swelling suggesting cellulitis and underlying osteomyelitis. There is plantar and Achilles surface calcaneal spurring. There is soft tissue swelling throughout the right foot. XR/XR foot RT min 3V IMPRESSION: Findings suggest osteomyelitis of the third middle and distal phalanx. There is diffuse soft tissue swelling suggesting cellulitis. Impression dictated by: Roberto Diez M.D. 10/26/2024 6:38 PM Dictation Location: [place] [address] Electronically authenticated by: [id number] Y Date: 10/26/2024 18:38
[2024-10-26] MEDS: 0.9 % SODIUM CHLORIDE 1,000 ML 1000 ML IV (18:33)
[2024-10-26 18:42] LABS: Basophils Absolute Auto 0.1 10^3/uL (0.0-0.1); Basophils Percent Auto 0.7 % (0.2-2.0); Eosinophils Absolute Auto 0.3 10^3/uL (0.0-0.7); Eosinophils Percent Auto 2.1 % (0.9-7.0); Hematocrit 39.1 % (36.0-48.0); Hemoglobin 11.9 g/dL (12.0-16.0); Immature Granulocytes Abs Auto 0.05 10^3/uL (0.00-0.03); Immature Granulocytes Pct Auto 0.4 % (0.0-0.5); Lymphocytes Absolute Auto 1.7 10^3/uL (1.2-3.8); Lymphocytes Percent Auto 11.9 % (20.5-60.0); Mean Corpuscular HGB Conc 30.4 g/dL (29.9-35.2); Mean Corpuscular Hemoglobin 27.4 pg (26.7-34.0); Mean Corpuscular Volume 89.9 fL (81.0-99.0); Mean Platelet Volume 11.5 fL (9.5-13.5); Monocytes Absolute Auto 0.9 10^3/uL (0.3-0.8); Monocytes Percent Auto 6.4 % (1.7-12.0); Neutrophils Absolute Auto 11.2 10^3/uL (1.4-6.5); Neutrophils Percent Auto 78.5 % (43.0-75.0); Platelet Count 297 10^3/uL (150-450); Red Blood Count 4.35 10^6/uL (4.20-5.40); Red Cell Distribution Width 16.8 % (11.0-15.0); White Blood Count 14.2 10^3/uL (4.0-11.0)
[2024-10-26 18:48] LABS: PCO2 VBG 50.2 mmHg (40.0-52.0); pH VBG 7.387 (7.330-7.430)
[2024-10-26 19:00] LABS: INR 1.41; Prothrombin Time 14.4 sec (9.0-11.6)
[2024-10-26 19:15] LABS: Alanine Aminotransferase 8 U/L (14-59); Albumin Globulin Ratio 0.7; Albumin Level 2.7 g/dL (3.4-5.0); Alkaline Phosphatase 82 U/L (46-116); Anion Gap 14.6; Aspartate Amino Transferase 18 U/L (15-37); BUN Creatinine Ratio 17.3; Bilirubin Total 0.7 mg/dL (0.2-1.0); Carbon Dioxide 30.3 mmol/L (21.0-32.0); Chloride 102 mmol/L (98-107); Creatine Kinase 177 U/L (26-192); Estimated GFR (African America >60 (>=60 mL/min/1.73m^2); Estimated GFR (Non-African Ame 54 (>=60 mL/min/1.73m^2); Globulin 4.1 g/dL; Glucose 131 mg/dL (74-106); Sodium 144 mmol/L (136-145); Total Protein 6.8 g/dL (6.4-8.2)
[2024-10-26 19:20] LABS: Lactate/Lactic Acid 2.1 mmol/L (0.4-2.0)
[2024-10-26 19:22] LABS: Magnesium 0.4 mg/dL (1.8-2.4); Potassium 2.9 mmol/L (3.5-5.1); Troponin I High Sensitivity 426.3 pg/mL (4.0-51.3)
[2024-10-26] MEDS: PIPERACILLIN SODIUM/TAZOBACTAM 4.5 GM in 0.9 % SODIUM CHLORIDE 50 ML IV (19:30)
[2024-10-26] MEDS: MAGNESIUM OXIDE 400 MG TABLET 800 MG PO (19:37)
[2024-10-26] MEDS: POTASSIUM CHLORIDE IN 0.9%NACL 1,000 ML 250 ML IV (19:37)
[2024-10-26] MEDS: POTASSIUM BICARBONATE/CIT 25 MEQ TABLET EFF 50 MEQ PO (19:39)
[2024-10-26] MEDS: ASPIRIN 81 MG TAB.CHEW 162 MG PO (19:39)
[2024-10-26] MEDS: MAGNESIUM SULFATE IN WATER 2 GM/50 ML PREMIX IV (19:39)
[2024-10-26 20:15] LABS: Lactate/Lactic Acid 1.5 mmol/L (0.4-2.0)
[2024-10-26 20:19] LABS: Troponin I High Sensitivity 303.7 pg/mL (4.0-51.3)
[2024-10-26] MEDS: CALCIUM GLUC IN NACL, ISO-OSM 1 GM/50 ML PLAST..BAG IV ×2 (20:53→21:28)
[2024-10-26] MEDS: CLINDAMYCIN PHOSPHATE/D5W 900 MG/50 ML PREMIX 100 MG IV (20:53)
[2024-10-26] MEDS: MORPHINE SULFATE 4 MG/ML VIAL IV (20:54)
[2024-10-26] MEDS: ONDANSETRON PF 4 MG/2 ML VIAL IV (21:28)
--- NOTE | 2024-10-26 22:05 | PC.NURSE ---
EMS crew here --report given. Care relinquished.
[2024-10-27 19:31] LABS: A. calcoaceticus-baumannii Cpx NOT DETECTED (NOT DETECTE); Bacteroides fragilis NOT DETECTED (NOT DETECTE); Candida albicans NOT DETECTED (NOT DETECTE); Candida auris NOT DETECTED (NOT DETECTE); Candida glabrata NOT DETECTED (NOT DETECTE); Candida krusei NOT DETECTED (NOT DETECTE); Candida parapsilosis NOT DETECTED (NOT DETECTE); Candida tropicalis NOT DETECTED (NOT DETECTE); Cryptococcus neoformans/gattii NOT DETECTED (NOT DETECTE); Enterobacter cloacae complex NOT DETECTED (NOT DETECTE); Enterobacterales NOT DETECTED (NOT DETECTE); Enterococcus faecalis NOT DETECTED (NOT DETECTE); Enterococcus faecium NOT DETECTED (NOT DETECTE); Haemophilus influenzae NOT DETECTED (NOT DETECTE); Klebsiella aerogenes NOT DETECTED (NOT DETECTE); Klebsiella pneumoniae group NOT DETECTED (NOT DETECTE); Listeria monocytogenes NOT DETECTED (NOT DETECTE); Neisseria meningitidis NOT DETECTED (NOT DETECTE); Proteus spp. NOT DETECTED (NOT DETECTE); Pseudomonas aeruginosa NOT DETECTED (NOT DETECTE); Salmonella spp. NOT DETECTED (NOT DETECTE); Serratia marcescens NOT DETECTED (NOT DETECTE); Staphylococcus lugdunensis NOT DETECTED (NOT DETECTE); Stenotrophomonas maltophilia NOT DETECTED (NOT DETECTE); Streptococcus agalactiae NOT DETECTED (NOT DETECTE); Streptococcus pneumoniae NOT DETECTED (NOT DETECTE); Streptococcus pyogenes NOT DETECTED (NOT DETECTE); Streptococcus spp. NOT DETECTED (NOT DETECTE)
[2024-10-27 20:48] LABS: Source Blood
[2024-10-27 20:50] LABS: Staphylococcus epidermidis DETECTED (NOT DETECTE); Staphylococcus spp. DETECTED (NOT DETECTE)
[2024-10-29 15:24] LABS: mecA/C DETECTED (NOT DETECTE)
== END 2024-10-26 22:28 | disposition short-term general hospital (02) ==
PROVIDERS: Emergency Medicine; Emergency Provider Internal Medicine
DX: M86.8X7 Other osteomyelitis, ankle and foot (principal); R79.89 Other specified abnormal findings of blood chemistry; E87.6 Hypokalemia; E83.42 Hypomagnesemia; R19.7 Diarrhea, unspecified; M34.9 Systemic sclerosis, unspecified; F17.210 Nicotine dependence, cigarettes, uncomplicated; Z79.01 Long term (current) use of anticoagulants; I87.8 Other specified disorders of veins; E87.20 Acidosis, unspecified; E86.0 Dehydration; G89.29 Other chronic pain; M79.671 Pain in right foot; E83.51 Hypocalcemia
CPT/HCPCS: 36415; 71045; 73630; 80053; 81001; 82550; 82800; 83605; 83735; 83880; 84484; 85025; 85610; 87040; 87150; 87186; 93005; 96361; 96365; 96367; 96368; 96375; 99285; J0613; J0736; J2270; J2405; J2543; J3475

== ENCOUNTER 2024-11-02 15:11 | Outpatient (OUT) | payer MEDICARE, SELFPAY ==
--- OUTSIDE RECORDS SUMMARY | 2024-11-02 15:14 | XMS_ITS | Encounter Summary ---
Author Organization [facility] Address [address] [place] [address] Care Team Providers Care Typo Machine Operator Name Role Phone Marianna Amado ROGE Primary Care Provider [phone] Encounter Details Date Type Department Care Team (Late st Contact Info) Description 07/21/2019 Telephone [facility] [address] [id number] Treasure Velez RN Social History Tobacco Use [...] 11/24/2017 9:49 AM Gurdeep Madison LPN * Are you blind or do [...] documented as of this encounter Care Teams Typo Machine Operator Relationship Specialty Start Date End Date Marianna Amado CNP [address] [place] [address] PCP - General Certified Nurse Practitioner 03/04/17 documented as of this encounter
--- OUTSIDE RECORDS SUMMARY | 2024-11-02 15:14 | XMS_ITS | Clinical Summary ---
Author Organization [facility] Address [address] [place] [address] Care Team Providers Care Hands Parter Name Role Phone Ingris Marianna Nayan CHURCH - HAND TWISTER Primary Care Provider [phone] Allergies No known active allergies Medications atorvastatin (LIPITOR) 10 MG tablet Take 10 mg by mouth daily 11/17/2018 Active buprenorphine-n aloxone (SUBOXONE) 8-[address] 8 mg under the tongue every morning. 10/18/2014 Active vitamin D (CHOLECALCIFERO L) 250 MCG (33311 UT) CAPS capsule Take 1,000 Units by [...] of Treatment Not on file Care Teams Hands Parter Relationship Specialty Start Date End Date Marianna Amado APRN - HAND TWISTER [facility] [place] [address] PCP - General Nurse Practitioner 03/30/19
--- OUTSIDE RECORDS SUMMARY | 2024-11-02 15:14 | XMS_ITS | Encounter Summary ---
Author Organization [facility] Address [address] [place] [address] Care Team Providers Care Monotype Keyboard Operator Name Role Phone Cecelia Franks MD Primary Care Provider [phone] Encounter Details Date Type Department Care Team (Late st Contact Info) Description 09/06/2024 Abstract [facility] [address] [place] [id number] Ozzy Rangel, DPM FACFAS [address] [place] [address] Social History Tobacco Use Types Packs/Day Years [...] on filedocumented in this encounter Care Teams Monotype Keyboard Operator Relationship Specialty Start Date End Date Cecelia Franks MD [address] [place] [address] [place] [address] PCP - General Family Medicine 09/05/24 documented as of this encounter
--- OUTSIDE RECORDS SUMMARY | 2024-11-02 15:14 | XMS_ITS | Clinical Summary ---
Author Organization [facility] Address [address] [place] [address] Care Team Providers Care Clinic Office Manager Name Role Phone Cecelia Franks MD Primary Care Provider [phone] Encounters Date Type Department Care Team Description 10/27/2024 Abstract [facility] [address] [place] [address] Ozzy Rangel, DPM FACFAS 10/27/2024 Abstract [facility] [address] [place] [address] Ozzy Rangel, DPM FACFAS 09/06/2024 Abstract [facility] [address] [place] [address] Ozzy Rangel, DPM FACFAS from Last 3 Months Social History Tobacco Use Types Packs/Day Years Used Date Smoking Tobacco: Never Assessed Comments Unknown Sex and Gender Information Value Date Recorded Sex Assigned at Not on file Legal Sex Female 7:17 PM EDT Gender Identity Not on file Sexual Orientation Not on file Plan of Treatment Not on file Insurance MEDICARE Care Teams Clinic Office Manager Relationship Specialty Start Date End Date Cecelia Franks MD [address] [place] [address] PCP - General Family Medicine 09/05/24
--- OUTSIDE RECORDS SUMMARY | 2024-11-02 15:14 | XMS_ITS | Clinical Summary ---
Author Organization [facility] Address [address] [place] [address] Care Team Providers Care Service Tester Name Role Phone Marianna Amado ROGE Primary Care Provider [phone] Blanco Dong DO, David Grant Unavailable Allergies No known active allergies Medications fluoxetine (PROZAC) 20 mg ORAL capsule Take 3 capsules by mouth once daily. 0 1 Active SUBOXONE 8-2 mg film Takes 8 mg Sublingual twice daily [address] (PROTONIX) 40 mg tablet Take 1 tablet by mouth once daily. 30 tablet 4 5 Active sildenafil (REVATIO) 20 mg tablet Take 20 mg by mouth three times daily. 90 tablet 6 5 Active Cholecalciferol , Vitamin D3, 10,000 unit cap Take 1 capsule by mouth once each week. 8 Active pilocarpine (SALAGEN) 5 mg tablet Take 5 mg by mouth three times daily. 8 Active sulfamethoxazol e-trimethoprim (BACTRIM DS,SEPTRA DS) 800-160 mg per tablet Take 1 tablet by mouth twice daily. 8 Active CALCIUM CARBONATE/VITAM IN D3 (CALCIUM 600 + D ORAL) Take 1 tablet by mouth once daily. Active Magnesium 250 mg tab Take 250 mg by mouth once daily. Active turmeric root extract 500 mg cap Take 1 capsule by mouth once daily. Active LINZESS 145 mcg cap Take 145 mcg by mouth once daily. 8 Active Active Problems Problem Noted Date Diagnosed Date Factor VIII deficiency 08/18/2017 Dysphagia 01/22/2015 Chronic fatigue 01/22/2015 Bilateral hand pain 01/22/2015 Hypotension 01/02/2015 Overview (01/02/2015): Assessment: Patient had low blood pressures and bradycardia overnight. However she remains asymptomatic from this aside from being thirsty. Perhaps we could decrease sildenafil to twice a day. Plan: Decrease sildenafil to b.id. From t.i.d. Bacteremia due to Gram-positive bacteria 015 Overview (01/02/2015): Noted after discharge. Blood from cultures 12/28 grew MRSE, sensitivities pending. No systemic symptoms at home. ID has been consulted they do not feel that antibiotics are necessary as micrococcus was actually mislabeled in second container. Will stop Vanco. Plan for discharge 01/02/2015 if echocardiogram is normal. Plan: Stop Vancomycin F/U most recent blood cultures F/Up on echocardiogram Fever in adult 12/28/2014 Overview (12/28/2014): Assessment: Patient had malaise and fever overnight on 12/27/2014. The fever was not present in the morning. Look at vitals this occurred following an increase in titration from 5 to 6ng. This is likely 2/2 alprostadil vasodilation or a side effect to alprostadil. Possible that immune system is seeing infection at ulcered portions of fingers. SUMMARY 12/25/2014 Overview (12/25/2014): Ms. Sanchez is a 49 year old female with 25 year history of scleroderma currently being treated for chronic limb ischemia with wound culture clindamycin resistance staph aureus infection currently receiving alprostadil infusions. Ulcer of finger 03/30/2014 Overview (01/02/2015): Known ulcers of right finger as well as left thumb. She was evaluated fully during her last admission. Hand surgery has recommended outpatient follow up to evaluate. This has been scheduled to occur on Feb [address] [place] [address] Montano. Plan: --> Vanco for now, will transition to orals once sensitivities are back. Abnormal finding on imaging 03/29/2014 Osteopenia 03/29/2014 Height loss 03/29/2014 PREETHI positive 03/29/2014 Leg swelling 03/29/2014 Overview (01/02/2015): Leg swelling an issue in her previous admission, very tight today on exam (although likely baseline). Multiple negative DVT scan in chart. Quite possibly d/t alprostidil infusion during last admission. Better today per patient. Plan: --> Continue to monitor off alprost, should continue to improve. Finger infection 03/29/2014 Overview (12/28/2014): Assessment: Patient currently on highest dose of [...] off Consult vascular medicine: signed off yesterday Lumbosacral spondylosis without myelopathy 12/23 Scleroderma 12/19/2010 Overview (01/02/2015): Long-time history of scleroderma, being treated here at [facility]. Recently (12/28) got sildenafil approved by her insurance, now on 20 mg TID. Plan: --> Continue sildenafil, nifedipine --> Pain managed with suboxone, pregabalin Vitamin D deficiency 12/19/2010 Multiple joint pain 12/19/2010 Elevated C-reactive protein (CRP) 12/19/2010 Abnormal laboratory test 12/19/2010 Resolved Problems Problem Noted Date Diagnosed Date Resolved Date MGUS (monoclonal gammopathy of unknown significance) 08/13/2017 08/13/2017 Family History Medical History Relation Comments Heart disease Father Hypertension Father Diabetes Maternal Grandmother Prostate Cancer Paternal Grandfather Heart disease Paternal Grandmother Blood Disease No Family History Relation Status Comments Brother Daughter Alive Father Maternal Grandfather Maternal Grandmother Mother Paternal Grandfather Paternal Grandmother Sister Son Alive Social History Tobacco Use Types Packs/Day Years Used Date Smoking Tobacco: Light Smoker Cigarettes 0.5 15 Started: 000; Last attempted to quit: 05/11/2014 Smokeless Tobacco: Never Tobacco Cessation:Ready to Q uit: No; Counseling Given: Yes Comments:Declined. Alcohol Use Standard Drinks/Week Comments No 0 (1 standard drink = 0.6 oz pur e alcohol) Area Deprivation Index Answer Date Flavio rded National Score (1-100), lower number is lower ri sk Not on file 04/16/2020 State Score (1-10), lower number is lower risk N ot on file 04/16/2020 Data from: https://www.neighborhoodatlas.medicine.[facility]/. Last address used for calculation Not on file 04/16/2020 Comments No Sex and Gender Information Value Date Recorded Sex Assigned at Not on file Legal Sex Female 8:08 AM EST Gender Identity Not on file Sexual Orientation Not on file Last Filed Vital Signs Vital Sign Reading Time Taken Comments Blood Pressure 135/58 08/18/2017 11:49 AM EDT Pulse 65 08/18/2017 11:49 AM EDT Temperature 36.7 C (98.1 F) 08/18/2017 11:49 AM EDT Respiratory Rate 16 08/18/2017 11:4 9 AM EDT Oxygen Saturation 96% 07/28/2017 10: 50 AM EDT Resting room air Inhaled Oxygen Concentration - - Weight 112.5 kg (248 lb) 08/18/2017 11: 49 AM EDT Patient declined to be weighed today; used weight from last visit. Height 172 cm (5' 7.72 ) 08/18/2017 11: 49 AM EDT Body Mass Index 38.02 08/18/2017 11:49 AM EDT Plan of Treatment Health Maintenance Due Date Last Done Comments Anxiety Screening 01/23/1982 Depression Screening 01/23/1982 HIV Screening 01/23/1982 DTaP,Tdap,Td Vaccine (1 - Tdap) 01/23/1983 Cervical Cancer Screening 01/23/[address] Colonography 01/23/2009 Cologuard (FIT-DNA) 01/23/2009 Colonoscopy 01/23/2009 Colorectal Cancer Screening 01/23/2009 Fecal Occult Blood 01/23/2009 Lipid Screening 01/23/2009 Sigmoidoscopy 01/23/2009 Pneumococcal Vaccine: 50+ (1 of 1 - PCV) 01/23/2014 Shingrix Vaccine (1 of 2) 01/23/2014 Diabetes Screening 12/31/2017 12/31/2014, 0 12/28/2014, 12/26/2014, Additional history exists Covid-19 Vaccine ( - 2023-2 5 season) 2024 Influenza Vaccine (Season Ended) 2025 RSV Vaccine (1 - 1-dose 75+ series) 01/23/2039 Hepatitis C Screening Completed 10/24/2010, 011 Procedures Procedure Name Priority Date/Time Associated Diagnosis Comments BASIC METABOLIC PANEL Routine 12/31/2014 7:57 AM EDT HEP REMOTE PANEL BL Routine 10/24/2010 1 1:03 AM EDT Fatigue from Last 3 Months or Most Recently Relevant to Health Maintenance Results * (ABNORMAL) BASIC METABOLIC PNL (12/31/2014 7:57 AM EDT) Glucose 78 65 - 100 mg/dL 12/31/2014 10:31 AM EDT [facility] BUN 12 8 - 25 mg/dL 12/31/2014 10:31 AM EDT [facility] Creatinine 0.83 0.70 - 1.40 mg/dL 12/31/2014 10:31 AM EDT [facility] Sodium 143 132 - 148 mmol/L 12/31/2014 10:31 AM EDT [facility] Potassium 4.1 3.5 - 5.0 mmol/L 12/31/2014 10:31 AM EDT [facility] Chloride 101 98 - 110 mmol/L 12/31/2014 10:31 AM EDT [facility] CO2 29 23 - 32 mmol/L 12/31/2014 10:31 AM EDT [facility] Anion Gap 13 0 - 15 mmol/L 12/31/2014 10:31 AM EDT [facility] Calcium 8.3(L) 8.5 - 10.5 mg/dL 12/31/2014 10:31 AM EDT [facility] eGFR- >60 12/31/2014 10:31 AM EDT [facility] eGFR-All Other Races >60 . 12/31/2014 10:31 AM EDT [facility] Comment: eGFR (Estimated GFR) Units of measure: mL/min/1.73 meters squared eGFR is derived from the reexpressed MDRD Study equation using the following parameters: serum creatinine, age, gender and race. The creatinine assay has been calibrated to be traceable to IDMS. An eGFR <60 mL/min/1.73m2 for >3 months is consistent with chronic kidney disease. Refer to KDOQI guidelines for clinical interpretation. In patients with unstable renal function, e.g. those with acute kidney injury, the eGFR may not accurately reflect actual GFR. Blood specimen (specimen) BLOOD SPECIMEN / Unknown 12/31/2014 7:57 AM EDT 12/31/2014 7:58 AM EDT us Catarina Bass MD LABORATORY Final Resu lt [facility] [address] [place] [address] * (ABNORMAL) HEP REMOTE PANEL BL (10/24/2010 11:03 AM EDT) Hep B Core Ab, Total Negative [facility] Hep C Antibody IA Positive(A) [facility] Comment:Confirmation with Booker holt C RNA has been ordered and charged. HBsAg Negative [facility] Hep B Surface Ab, Qual Negative [facility] Comment: A negative Hepatitis B Surface Antibody is indicative of: 1)no prior exposure to HBV, 2)lack of antibody response to an acute or chronic HBV infection, 3)lack of antibody response to HBV vaccination, or, 4)loss of immunity that followed either vaccination or infection. Blood specimen (specimen) BLOOD SPECIMEN / Unknown 10/24/2010 11:03 AM EDT 10/24/2010 11:13 AM EDT us Treasure Savage MD LABORATORY Final Result [facility] [address] [place] [address] from Last 3 Months or Most Recently Relevant to Health Maintenance Insurance MEDICARE Care Teams Service Tester Relationship Specialty Start Date End Date Marianna Amado CNP PCP - General Family Medicine 07/21/17 Km Simeon Jr., DO [address] [place] [address] Rheumatology 07/21/17
--- OUTSIDE RECORDS SUMMARY | 2024-11-02 15:14 | XMS_ITS | Encounter Summary ---
Author Organization [facility] Address [address] [place] [address] Care Team Providers Care Outpatient Coordinator Name Role Phone Cecelia Franks MD Primary Care Provider [phone] Encounter Details Date Type Department Care Team (Late st Contact Info) Description 10/27/2024 Abstract [facility] [address] [place] [address] Ozzy Rangel, DPM FACFAS [address] [place] [address] Social History Tobacco Use Types Packs/Day Years [...] on filedocumented in this encounter Care Teams Outpatient Coordinator Relationship Specialty Start Date End Date Cecelia Franks MD [address] [place] [address] [place] [address] PCP - General Family Medicine 09/05/24 documented as of this encounter
--- OUTSIDE RECORDS SUMMARY | 2024-11-02 15:14 | XMS_ITS | Encounter Summary ---
Author Organization [facility] Address [address] [place] [address] Care Team Providers Care Kids Activities Coach Name Role Phone Cecelia Franks MD Primary Care Provider [phone] Encounter Details Date Type Department Care Team (Late st Contact Info) Description 10/27/2024 Abstract [facility] [address] [address] [place] [id number] Ozzy Rangel, DPM FACFAS [address] [place] [address] Social History Tobacco Use Types Packs/Day Years [...] on filedocumented in this encounter Care Teams Kids Activities Coach Relationship Specialty Start Date End Date Cecelia Franks MD [address] [place] [address] [place] [address] PCP - General Family Medicine 09/05/24 documented as of this encounter
--- OUTSIDE RECORDS SUMMARY | 2024-11-02 15:14 | XMS_ITS | Patient Health Record ---
Author Organization [facility] Address [address] [place] [address] Care Team Providers Care Yardage Estimator Name Role Phone Gail Schaefer Primary Care Provider Leobardo Rucker Unavailable [phone] Reason For Referral No Information Medications Medication [...] Status Risk Notes Problem Generalized anxiety disorder (78942945) Generalized anxiety disorder (300.02) Active confirmed Problem Benign essential hypertension (4138908) Essential hypertension, benign (401.1) Active confirmed Problem Essential hypertension (97651197) Essential hypertension (401.9) Active confirmed Low Problem Systemic sclerosis (89050441) Systemic sclerosis (710.1) Active confirmed Problem Pain,Back-Muscos keletal (781.99) Active confirmed Plan Of Treatment No Information Insurance Providers Payer Name Payer Address Payer Phone Subscriber Number Group Number Insured Name Patient Relationship to Insured Coverage Start Date Coverage End Date MEDICARE CGS 1 [address] [place] [facility] [place] [phone] [id number] VIK ABEL Self - patient is the [...]
--- OUTSIDE RECORDS SUMMARY | 2024-11-02 15:14 | XMS_ITS | Clinical Summary ---
Author Organization [facility] Address [address] [place] [address] Care Team Providers Care Linux Kernel Engineer Name Role Phone Marianna Amado ROGE Primary Care Provider [phone] Allergies Active Allergy Reactions Criticality Noted Date [...] Pain. 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 Montano. Plan: --> Vanco for now, will transition to orals once sensitivities are back. Abnormal laboratory test result 12/19/2010 11/18/2018 CRP elevated 12/19/2010 03/28/2019 Scleroderma 12/19/2010 03/28/2019 Overview (11/24/2017): Overview: Long-time history of scleroderma, being treated here at [facility]. Recently (12/28) got sildenafil approved [...] with a HCV Nucleic Acid Amplification test (116139). PERFORMED AT [facility] 05/26/2017 10:1 7 AM EST 05/26/2017 10:18 AM EST us Km Simeon Jr., DO IMMUNOLOGY ORDERABLES Final Result [facility] from Last 3 Months or Most Recently Relevant to Health Maintenance Insurance MEDICARE A AND B Care Teams Linux Kernel Engineer Relationship Specialty Start Date End Date Marianna Amado CNP [address] [place] [id number] PCP - General Certified Nurse Practitioner 03/04/17
== END 2024-11-02 15:12 | disposition home or self-care (01) ==
LOC: WC 15:12
PROVIDERS: Visit Provider Podiatrist Foot & Ankle Surgery
DX: I70.235 Atherosclerosis of native arteries of right leg with ulceration of other part of foot (principal); L97.513 Non-pressure chronic ulcer of other part of right foot with necrosis of muscle; I70.245 Atherosclerosis of native arteries of left leg with ulceration of other part of foot; L97.523 Non-pressure chronic ulcer of other part of left foot with necrosis of muscle
CPT/HCPCS: G0463

== ENCOUNTER 2024-11-16 14:11 | Outpatient (OUT) | payer MEDICARE, SELFPAY ==
--- OUTSIDE RECORDS SUMMARY | 2024-11-16 14:31 | XMS_ITS | Encounter Summary ---
Author Organization [facility] Address [address] [place] [address] Care Team Providers Care Heater Installer Name Role Phone Cecelia Franks MD Primary Care Provider Encounter Details Date Type Department Care Team (Late st Contact Info) Description 10/27/2024 Abstract [facility] [address] [place] [address] Ozzy Rangel, DPM FACFAS [address] [place] [address] Social History Tobacco Use Types Packs/Day Years [...] on filedocumented in this encounter Care Teams Heater Installer Relationship Specialty Start Date End Date Cecelia Franks MD [address] [place] [address] [place] [address] PCP - General Family Medicine 09/05/24 documented as of this encounter
--- OUTSIDE RECORDS SUMMARY | 2024-11-16 14:31 | XMS_ITS | Patient Health Record ---
Author Organization [facility] Address [address] [place] [address] Care Team Providers Care Pick Pulling Machine Tender Name Role Phone Gail Schaefer Primary Care Provider [phone] Leobardo Rucker Unavailable [phone] Reason For Referral No Information Medications Medication SIG (Take, Route, Frequency, Duration) Notes Start Date End Date Status PROzac 20 MG 3 cap(s) Orally 3 ta bs po daily; Duration: 30 days Active Pantoprazole Sodium 40 MG 1 tablet Orall y Once a day; Duration: 30 days Active Suboxone 16 mg 1 TAB Sublingual Onc e a day Active PROzac 20 MG 1 capsule in the mor inocente Orally Once a day x 1 week, then 2 tabs po daily x 1 week, then 3 tabs po daily; Duration: 30 day(s) 06/09/2013 Active Pantoprazole Sodium 40 MG 1 tablet Orall y Once a day; Duration: 30 days Active Procardia XL 90 mg daily Orally Once a day; Duration: 90 day(s) Active Tylenol Extra Strength 500 MG 2 TABS Orally Active Problems Problem Type SNOMED Code ICD Code Onset Dates Problem Status W/U Status Risk Notes Problem Generalized anxiety disorder (00762973) Generalized anxiety disorder (300.02) Active confirmed Problem Benign essential hypertension (0622737) Essential hypertension, benign (401.1) Active confirmed Problem Essential hypertension (98383928) Essential hypertension (401.9) Active confirmed Low Problem Systemic sclerosis (93999281) Systemic sclerosis (710.1) Active confirmed Problem Pain,Back-Muscos keletal (781.99) Active confirmed Plan Of Treatment No Information Insurance Providers Payer Name Payer Address Payer Phone Subscriber Number Group Number Insured Name Patient Relationship to Insured Coverage Start Date Coverage End Date MEDICARE CGS [address] [place] [phone] [id number] VIK ABEL Self - patient is the [...]
--- OUTSIDE RECORDS SUMMARY | 2024-11-16 14:31 | XMS_ITS | Clinical Summary ---
Author Organization [facility] Address [address] [place] [address] Care Team Providers Care Director Of Managed Services Name Role Phone Marianna Amado ROGE Primary Care Provider [phone] Blanco Dong DO, David Grant Unavailable Allergies [...] to occur on Feb [address] [place] [address] Montano. Plan: --> Vanco for [...] Orthopedic consult scheduled February [address] Montnao Consult wound care team: signed off Consult vascular medicine: signed off yesterday Lumbosacral spondylosis without myelopathy 12/23 Scleroderma 12/19/2010 Overview (01/02/2015): Long-time history of scleroderma, being treated here at [facility]. Recently (12/28) got sildenafil approved by her [...] N ot on file 04/16/2020 Data from: https://www.neighborhoodatlas.medicine.[facility]/. Last address used for calculation Not on [...] 12/28/2014, 12/26/2014, Additional history exists Covid-19 Vaccine (1 - 2023-2 5 season) 2024 Influenza Vaccine (#1) 2025 RSV Vaccine (1 - 1-dose 75+ [...] - 100 mg/dL 12/31/2014 10:31 AM EDT [facility] BUN 12 8 - 25 mg/dL 12/31/2014 10:31 AM EDT [facility] Creatinine 0.83 0.70 - 1.40 mg/dL 12/31/2014 10:31 AM EDT [facility] Sodium 143 132 - 148 mmol/L 12/31/2014 10:31 AM EDT [facility] Potassium 4.1 3.5 - 5.0 mmol/L 12/31/2014 10:31 AM EDT [facility] Chloride 101 98 - 110 mmol/L 12/31/2014 10:31 AM EDT [facility] CO2 29 23 - 32 mmol/L 12/31/2014 10:31 AM EDT [facility] Anion Gap 13 0 - 15 mmol/L 12/31/2014 10:31 AM EDT [facility] Calcium 8.3(L) 8.5 - 10.5 mg/dL 12/31/2014 10:31 AM EDT [facility] eGFR- >60 12/31/2014 10:31 AM EDT [facility] eGFR-All Other Races >60 . 12/31/2014 10:31 AM EDT [facility] Comment: eGFR (Estimated GFR) Units [...] Catarina Bass MD LABORATORY Final Resu lt [facility] [address] [place] [address] * (ABNORMAL) HEP REMOTE PANEL BL (10/24/2010 11:03 AM EDT) Hep B Core Ab, Total Negative [facility] Hep C Antibody IA Positive(A) [facility] Comment:Confirmation with Booker holt C RNA has been ordered and charged. HBsAg Negative [facility] Hep B Surface Ab, Qual Negative [facility] Comment: A negative Hepatitis [...] us Treasure Savage MD LABORATORY Final Result [facility] [address] [place] [address] from Last 3 Months or Most Recently Relevant to Health Maintenance Insurance MEDICARE Care Teams Director Of Managed Services Relationship Specialty Start Date End Date Marianna Amado CNP PCP - General Family Medicine 07/21/17 Km Simeon Jr., DO [address] [place] [address] Rheumatology 07/21/17
--- OUTSIDE RECORDS SUMMARY | 2024-11-16 14:31 | XMS_ITS | Encounter Summary ---
Author Organization [employer] Address [address] [place] [address] Care Team Providers Care Lead Java Developer Architect Name Role Phone Marianna Amado ROGE Primary Care Provider [phone] Encounter Details Date Type Department Care Team (Late st Contact Info) Description 07/21/2019 Telephone [facility] [address] [id number] Treasure Velez RN Social History Tobacco Use [...] documented as of this encounter Care Teams Lead Java Developer Architect Relationship Specialty Start Date End Date Marianna Amado CNP [address] [place] [address] PCP - General Certified Nurse Practitioner 03/04/17 documented as of this encounter
--- OUTSIDE RECORDS SUMMARY | 2024-11-16 14:31 | XMS_ITS | Clinical Summary ---
Author Organization [facility] Address [address] [place] [address] Care Team Providers Care Sourcer Name Role Phone Cecelia Franks MD Primary Care Provider [phone] Encounters Date Type Department Care Team Description 10/27/2024 Abstract [facility] POD [address] [place] [address] Ozzy Rangel, DPM FACFAS 10/27/2024 Abstract [facility] [address] [place] [address] Ozzy Rangel, DPM FACFAS 09/06/2024 Abstract [facility] [address] [place] [address] Ozzy Rangel, DPM FACFAS from [...] Not on file Insurance MEDICARE Care Teams Sourcer Relationship Specialty Start Date End Date Cecelia Franks MD [address] [place] [address] PCP - General Family Medicine 09/05/24
--- OUTSIDE RECORDS SUMMARY | 2024-11-16 14:31 | XMS_ITS | Encounter Summary ---
Author Organization [facility] Address [address] [place] [address] Care Team Providers Care Sales Representative Name Role Phone Cecelia Franks MD Primary Care Provider [phone] Encounter Details Date Type Department Care Team (Late st Contact Info) Description 09/06/2024 Abstract [facility] [address] [place] [phone] Ozzy Rangel, DPM FACFAS [address] [place] [address] Social History Tobacco Use Types Packs/Day Years [...] on filedocumented in this encounter Care Teams Sales Representative Relationship Specialty Start Date End Date Cecelia Franks MD [address] [place] [address] [place] [address] PCP - General Family Medicine 09/05/24 documented as of this encounter
--- OUTSIDE RECORDS SUMMARY | 2024-11-16 14:31 | XMS_ITS | Encounter Summary ---
Author Organization [facility] Address [address] [place] [address] Care Team Providers Care Substation Operator Helper Generation Name Role Phone Cecelia Franks MD Primary Care Provider [phone] Encounter Details Date Type Department Care Team (Late st Contact Info) Description 10/27/2024 Abstract [facility] [address] [place] [id number] Ozzy Rangel, DPM FACFAS [address] [place] [address] Social History Tobacco Use Types Packs/Day Years [...] on filedocumented in this encounter Care Teams Substation Operator Helper Generation Relationship Specialty Start Date End Date Cecelia Franks MD [address] [place] [address] [place] [address] PCP - General Family Medicine 09/05/24 documented as of this encounter
--- OUTSIDE RECORDS SUMMARY | 2024-11-16 14:31 | XMS_ITS | Clinical Summary ---
Author Organization [facility] Address [address] [place] [address] Care Team Providers Care Negative Developer Name Role Phone Marianna Amado ROGE Primary Care Provider [phone] Allergies Active Allergy Reactions Criticality Noted Date [...] Pain. 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 Montano. Plan: --> Vanco for now, will transition to orals once sensitivities are back. Abnormal laboratory test result 12/19/2010 11/18/2018 CRP elevated 12/19/2010 03/28/2019 Scleroderma 12/19/2010 03/28/2019 Overview (11/24/2017): Overview: Long-time history of scleroderma, being treated here at [facility]. Recently (12/28) got sildenafil approved by her [...] VACCINE (2023-2 5 season) 2024 INFLUENZA VACCINE (#1) 2025 RSV VACCINE (1 - 1-dose 75+ [...] with a HCV Nucleic Acid Amplification test (282490). PERFORMED AT [facility] 05/26/2017 10:1 7 AM EST 05/26/2017 10:18 AM EST us Km Simeon Jr., DO IMMUNOLOGY ORDERABLES Final Result [facility] from Last 3 Months or Most Recently Relevant to Health Maintenance Insurance MEDICARE A AND B Care Teams Negative Developer Relationship Specialty Start Date End Date Marianna Amado CNP [address] [place] [id number] PCP - General Certified Nurse Practitioner 03/04/17
--- OUTSIDE RECORDS SUMMARY | 2024-11-16 14:31 | XMS_ITS | Clinical Summary ---
Author Organization [facility] Address [address] [place] [address] Care Team Providers Care Junior Network Administrator Name Role Phone Ingris Marianna Nayan CHURCH - BRIDAL CONSULTANT Primary Care Provider [phone] Allergies No known active allergies Medications atorvastatin (LIPITOR) 10 MG tablet Take 10 mg by mouth daily 11/17/2018 Active buprenorphine-n aloxone (SUBOXONE) 8-[address] film [address] 8 mg under the tongue every morning. 10/18/2014 Active vitamin D (CHOLECALCIFERO L) 250 MCG (63086 UT) CAPS capsule Take 1,000 Units by [...] of Treatment Not on file Care Teams Junior Network Administrator Relationship Specialty Start Date End Date Marianna Amado APRN - BRIDAL CONSULTANT [facility] [address] [place] [address] PCP - General Nurse Practitioner 03/30/19
== END 2024-11-16 14:12 | disposition home or self-care (01) ==
LOC: WC 14:12
PROVIDERS: Visit Provider Podiatrist Foot & Ankle Surgery
DX: I70.235 Atherosclerosis of native arteries of right leg with ulceration of other part of foot (principal); L97.513 Non-pressure chronic ulcer of other part of right foot with necrosis of muscle
CPT/HCPCS: G0463